=== PATIENT | male | born 1960 | race Two or more races ===

== ENCOUNTER 2021-10-24 20:58 | Emergency (ER) | payer OTHER, SELFPAY ==
--- NOTE | ~2021-10-24 | XR_ITS ---
EXAMINATION: XR CHEST CLINICAL INFORMATION: Shortness of breath COMPARISON: None TECHNIQUE: Frontal view of the chest was obtained. FINDINGS: Heart size normal. Diffuse multifocal infiltrates are present with relative sparing of only the left upper lobe. No pleural effusions are seen. XR/XR chest 1V IMPRESSION: Commonly reported imaging features of Covid 19 or viral pneumonia are present with diffuse multifocal infiltrates. Other processes such as influenza pneumonia or organizing pneumonia, as can be seen with drug toxicity and connective tissue disease, can cause a similar imaging pattern.
[2021-10-24 21:09] VITALS: BP 147/87; PULSE 114; RESP 20; TEMP 36.8; O2SAT 94; BMI 29.8
--- NOTE | 2021-10-25 | ED.URI ---
HPI - URI/Sore Throat General Chief Complaint: Upper Respiratory Symptoms Stated Complaint: Flu like symptoms Time Seen by Provider: 10/25/21 00:00 Source: patient Mode of arrival: ambulatory History of Present Illness HPI Narrative: 60-year-old male with presentation intermittent shortness of breath than right back pain, nasal congestion, body aches and dry cough and has received COVID-19 vaccine ([employer]). Related Data Allergies Allergy/AdvReac Type Severity Reaction Status Date / Time No Known Allergies Allergy Verified 10/24/21 21:09 Review of Systems Review of Systems: Pertinent positives and negatives as stated in HPI 10 point review of systems is otherwise negative. PMFSH Past Medical History Source: nursing notes reviewed Medical History Diabetes Hypertension Social History Social History Advance Directives: No Advance Directives Information Provided: Yes Physical Exam Vital Signs: Vital Signs: Last Vital Signs Temp 99.0 F 10/25/21 01:25 Pulse 98 10/25/21 01:25 Resp 20 10/25/21 01:25 BP 120/72 10/25/21 01:25 Pulse Ox 94 10/25/21 01:25 BMI result Body Mass Index 29.8 VITAL SIGNS: Reviewed. GENERAL: Well developed, well nourished, in no acute distress. HEAD: Normocephalic/atraumatic EYES: PERRLA, EOMI EARS: Ext canals without abnormality, TMs non-bulging and non-erythematous NOSE: Nasal congestion OROPHARYNX: no oral lesions noted, posterior pharynx clear and non-erythematous without noted tonsillar enlargement/erythema/exudates NECK: Supple, no adenopathy LUNGS: Normal breath sounds, no tachypnea or increased work of breathing No adventitious sounds or accessory muscle use. SpO2<94> CARDIOVASCULAR: Regular rate and rhythm without noted murmurs, no JVD or lower extremity edema. ABDOMEN: Soft, non-tender, non-distended with bowel sounds. NEUROLOGIC: Alert and oriented x 4. Course Course Course Narrative: 60-year-old male with history and clinical presentation consistent with viral syndrome and on review COVID-19 testing is noted be negative, however chest x-ray findings are consistent with patterns seen with COVID-19 infection. The chest x-ray findings as well as patient's history prompted precautions for isolation that were communicated to the patient and he was provided with combination analgesics and otherwise discharged home in stable condition without tachypnea, he is currently afebrile. MDM - URI/Sore Throat Lab Data Labs: Lab Results 10/25/21 Range/Units 00:13 COVID-19 ([facility]) Negative (Negative) COVID-19 Clin Com See Note Discharge Plan Discharge Clinical Impression: Viral syndrome, Abnormal finding on chest xray Patient Disposition: Home, Self-Care Instructions: Viral Syndrome (ED) Additional Instructions: 1. Recomiende Tylenol / ibuprofeno de venta david seg?n sea necesario para karla corporales, karla de marco a y temperaturas superiores a 100,4?C. 2. Recomiende que se a?sle angel luis los pr?ximos 10 d?as a pesar de que narvaez prueba de COVID 19 sea negativa ya que hay hallazgos en la radiograf?a de t?rax que son consistentes con COVID-19. 3. Joao un seguimiento con narvaez proveedor de atenci?n primaria en los pr?ximos 2-3 d?as a roman?s de ric arnold de telemedicina para ric reevaluaci?n y un tratamiento ambulatorio adicional. Regrese a la abran de emergencias si los s?ntomas empeoran. Print Language: Tristanian
[2021-10-25 00:39] LABS: COVID-19 Test Negative (Negative)
[2021-10-25 01:25] VITALS: BP 120/72; PULSE 98; RESP 20; TEMP 37.2; O2SAT 94
[2021-10-25] MEDS: Ibuprofen 400 MG TABLET PO (01:27)
[2021-10-25] MEDS: Acetaminophen 325 MG TABLET 975 MG PO (01:27)
== END 2021-10-25 01:44 | disposition home or self-care (01) ==
LOC: HO.ED 10-25 01:26
PROVIDERS: Emergency Provider Student in an Organized Health Care Education/Training Program
DX: B34.9 Viral infection, unspecified (principal); Z20.822 Contact with and (suspected) exposure to COVID-19; R06.02 Shortness of breath; R91.8 Other nonspecific abnormal finding of lung field; E11.9 Type 2 diabetes mellitus without complications; I10 Essential (primary) hypertension
CPT/HCPCS: 36415; 71045; 87635; 99283; 99284